=== PATIENT | female | born 1975 | race Caucasian/White ===

== ENCOUNTER 2017-04-12 08:00 | Emergency (ER) | payer OTHER, BC ==
[2017-04-12] MEDS ORDERED: TORADOL 60 MG VIAL IM ONE (08:13)
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
[2017-04-12] MEDS ORDERED: TORADOL 60 MG VIAL ONE (08:16)
[2017-04-12 08:23] VITALS: BP 133/80; BMI 23.1
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
== END 2017-04-12 09:38 | disposition home or self-care (01) ==
LOC: ER 08:23
DX: S40.212A Abrasion of left shoulder, initial encounter (principal); M54.2 Cervicalgia; V89.2XXA Person injured in unspecified motor-vehicle accident, traffic, initial encounter
CPT/HCPCS: 70450; 72125; 72128; 72131; 73030; 96372; 99283; J1885